=== PATIENT | female | born 1955 | race Caucasian/White ===

== ENCOUNTER 2020-07-17 14:02 | Observation (INO) | payer MEDICAID, MEDICARE ==
[~2020-07-17] VITALS: Ht 157.5 cm; Wt 44.1 kg
[2020-07-17] MEDS ORDERED: ASPIRIN 81 MG TABLET CHEW PO ONE ×2 (14:30→20:30)
[2020-07-17] MEDS ORDERED: ASPIRIN 81 MG TABLET CHEW ONE (14:54)
[2020-07-17 15:11] LABS: BASOPHILS % (AUTO) 1 % (0-1); EOSINOPHILS % (AUTO) 0 % (1-7); LYMPHOCYTES % (AUTO) 24 % (22-44); MEAN CORPUSCULAR HEMOGLOBIN 33.4 pg (27.0-34.8); MEAN CORPUSCULAR HGB CONC 34.2 g/dL (32.4-35.8); MEAN PLATELET VOLUME 8.4 fL (7.4-10.4); MONOCYTES % (AUTO) 6 % (2-9); NEUTROPHILS % (AUTO) 69 % (42-75); PLATELET COUNT 189 x10^3/uL (130-400); RED BLOOD COUNT 3.78 x10^6/uL (3.82-5.3); RED CELL DISTRIBUTION WIDTH 13.1 % (9.6-15.2)
[2020-07-17 15:23] LABS: CALCIUM 8.6 mg/dL (8.5-10.1)
[2020-07-17 15:34] LABS: ALANINE AMINOTRANSFERASE 64 U/L (12-78); ALKALINE PHOSPHATASE 76 U/L (45-117); ANION GAP 9 mmol/L (5-15); BILIRUBIN,TOTAL 0.4 mg/dL (0.2-1.0); CHLORIDE 110 mmol/L (98-107); CREATININE 0.65 mg/dL (0.55-1.02); TOTAL PROTEIN 7.2 g/dL (6.4-8.2); TROPONIN I < 0.015 ng/mL (0.000-0.045)
[2020-07-17] MEDS ORDERED: ACETAMINOPHEN 500 MG TABLET ONE (16:30)
[2020-07-17] MEDS ORDERED: ACETAMINOPHEN 500 MG TABLET PO ONE (16:30)
[2020-07-17] MEDS ORDERED: LISI-167 PO (16:40)
[2020-07-17] MEDS ORDERED: PREG50CA58 PO (16:42)
[2020-07-17] MEDS ORDERED: MAGN400T36 PO (16:44)
[2020-07-17] MEDS ORDERED: ATOR20TA PO (16:44)
[2020-07-17] MEDS ORDERED: TOPI100T8 PO (16:45)
[2020-07-17] MEDS ORDERED: MONT10TA17 PO (16:45)
[2020-07-17] MEDS ORDERED: HYDR-826 PO (16:47)
[2020-07-17] MEDS ORDERED: MULT-717 PO (16:48)
[2020-07-17] MEDS ORDERED: TRAZ50TA66 PO (16:48)
[2020-07-17] MEDS ORDERED: ZINC220T2 PO (16:49)
[2020-07-17] MEDS ORDERED: CHOL10003 PO (16:49)
--- NOTE | 2020-07-17 18:22 | NUR ---
PHONE REPORT TO LAURIE
[2020-07-17] MEDS ORDERED: ZOLPIDEM 5MG TABLET PO PRN (20:30)
[2020-07-17] MEDS ORDERED: morphine SULFATE 10 MG/ML, 1ML IV PRN (20:30)
[2020-07-17] MEDS ORDERED: GABAPENTIN 300 MG CAPSULE PO PRN (20:30)
[2020-07-17] MEDS ORDERED: ACETAMINOPHEN 325 MG TABLET PO PRN (20:30)
[2020-07-17] MEDS ORDERED: ENOXAPARIN 40 MG/0.4 ML SQ SCH (20:30)
[2020-07-17] MEDS ORDERED: morphine SULFATE 10 MG/ML, 1ML IVPush PRN (20:30)
[2020-07-17] MEDS ORDERED: BISACODYL 10 MG SUPP PR PRN (20:30)
[2020-07-17 20:53] VITALS: BP 147/80
[2020-07-17] MEDS ORDERED: ATORVASTATIN 20 MG TABLET PO SCH (21:00)
[2020-07-17 21:46] LABS: TROPONIN I < 0.015 ng/mL (0.000-0.045)
[2020-07-17] MEDS: PREGABALIN 50 MG CAP PO SCH (21:47)
[2020-07-17 21:51] VITALS: BP 115/64
[2020-07-17] MEDS ORDERED: TOPIRAMATE 100 MG TABLET ONE (22:11)
[2020-07-17] MEDS: METOPROLOL TARTRATE 25 MG TAB PO SCH (22:13)
[2020-07-17] MEDS: SODIUM CHLORIDE FLUSH 10ML SYR IVF SCH (22:15)
[2020-07-17] MEDS ORDERED: TOPIRAMATE 100 MG TABLET PO SCH (22:30)
[2020-07-18 01:02] LABS: TROPONIN I < 0.015 ng/mL (0.000-0.045)
[2020-07-18 01:54] VITALS: BP 142/79
[2020-07-18 05:14] LABS: BASOPHILS % (AUTO) 1 % (0-1); EOSINOPHILS % (AUTO) 1 % (1-7); LYMPHOCYTES % (AUTO) 34 % (22-44); MEAN CORPUSCULAR HEMOGLOBIN 33.7 pg (27.0-34.8); MEAN CORPUSCULAR HGB CONC 34.4 g/dL (32.4-35.8); MEAN PLATELET VOLUME 8.7 fL (7.4-10.4); MONOCYTES % (AUTO) 8 % (2-9); NEUTROPHILS % (AUTO) 56 % (42-75); PLATELET COUNT 182 x10^3/uL (130-400); RED CELL DISTRIBUTION WIDTH 13.2 % (9.6-15.2)
[2020-07-18 05:23] LABS: ALBUMIN 3.3 g/dL (3.4-5.0); ANION GAP 4 mmol/L (5-15); CHLORIDE 112 mmol/L (98-107)
[2020-07-18 05:33] LABS: ALANINE AMINOTRANSFERASE 62 U/L (12-78); ALKALINE PHOSPHATASE 67 U/L (45-117); BILIRUBIN,TOTAL 0.4 mg/dL (0.2-1.0); CHOL/HDL RATIO 2.5; CHOLESTEROL, TOTAL 157 mg/dL (140-239); CREATININE 0.64 mg/dL (0.55-1.02); HDL CHOL % 39 % (28-40); HDL CHOLESTEROL (DIRECT) 62 mg/dL (40-60); LDL CHOLESTEROL,CALCULATED 82 mg/dL (54-169); LDL/HDL RATIO 1.3 (0.5-3.0); TOTAL PROTEIN 6.5 g/dL (6.4-8.2); TRIGLYCERIDES 63 mg/dL (50-200); VLDL CHOLESTEROL 13 mg/dL (0-25)
[2020-07-18] MEDS ORDERED: ASPIRIN 325 MG TABLET EC PO SCH (06:00)
[2020-07-18 06:02] LABS: FREE T4 (FREE THYROXINE) 1.22 ng/dL (0.76-1.46)
[2020-07-18 06:44] VITALS: BP 138/73
[2020-07-18] MEDS: METOPROLOL TARTRATE 25 MG TAB PO SCH (06:44)
[2020-07-18] MEDS: PREGABALIN 50 MG CAP PO SCH ×2 (07:56→16:42)
[2020-07-18] MEDS ORDERED: REGADENOSON 0.4 MG/5 ML SYRINGE ONE (08:37)
[2020-07-18] MEDS ORDERED: CHOLECALCIFEROL 5,000u TAB PO SCH (09:00)
[2020-07-18] MEDS ORDERED: BUPROPION SR 150 MG TABLET PO SCH (09:00)
[2020-07-18] MEDS ORDERED: TOPIRAMATE 100 MG TABLET PO SCH (09:00)
[2020-07-18] MEDS ORDERED: MONTELUKAST 10 MG TABLET PO SCH (09:00)
[2020-07-18] MEDS ORDERED: LISINOPRIL 10 MG TABLET PO SCH (09:00)
[2020-07-18] MEDS: SODIUM CHLORIDE FLUSH 10ML SYR IVF SCH (10:47)
[2020-07-18 12:13] VITALS: BP 114/69
[2020-07-18] MEDS ORDERED: LISI5TAB7 PO (15:18)
== END 2020-07-18 18:36 | disposition home or self-care (01) ==
LOC: ED 16:20 → INTOOBSV 18:43 → 5SO 18:43
PROVIDERS: ADMIT Internal Medicine; ATTEND Internal Medicine
DX: R07.89 Other chest pain (principal); R06.02 Shortness of breath; I10 Essential (primary) hypertension; E78.5 Hyperlipidemia, unspecified; G43.909 Migraine, unspecified, not intractable, without status migrainosus; J45.909 Unspecified asthma, uncomplicated; F41.1 Generalized anxiety disorder; F32.9 Major depressive disorder, single episode, unspecified; Z90.710 Acquired absence of both cervix and uterus; Z90.49 Acquired absence of other specified parts of digestive tract; Z88.0 Allergy status to penicillin; Z79.899 Other long term (current) drug therapy; Z87.891 Personal history of nicotine dependence; Z63.8 Other specified problems related to primary support group
CPT/HCPCS: 36415; 71045; 78452; 80053; 80061; 83735; 84439; 84443; 84484; 85025; 85379; 93005; 93017; 93306; 93356; 96372; 99285; A9502; C9898; G0378; J1650; J2785

== ENCOUNTER 2020-08-01 10:18 | Outpatient (CLI) | payer MEDICARE ==
[~2020-08-01 10:18] MED LIST: ATOR20TA PO; CHOL10003 PO; HYDR-826 PO; LISI-167 PO; LISI5TAB7 PO; MAGN400T36 PO; MONT10TA17 PO; MULT-717 PO; PREG50CA58 PO; TOPI100T8 PO; TRAZ50TA66 PO; ZINC220T2 PO
== END 2020-08-01 23:59 | disposition home or self-care (01) ==
LOC: RAD 10:18 → EDSTATUS 10:30 → RAD 23:59
PROVIDERS: ATTEND Registered Nurse
DX: R79.89 Other specified abnormal findings of blood chemistry (principal)
CPT/HCPCS: 76700